=== PATIENT | female | born 1990 | race Two or more races ===

== ENCOUNTER 2019-01-29 20:10 | Emergency (ER) | payer MEDICAID ==
[~2019-01-29] VITALS: Ht 160 cm; Wt 53.1 kg
[2019-01-29 20:22] VITALS: BP 129/72
--- NOTE | 2019-01-29 20:22 | NUR ---
ED Nurse Note: Pt arrived ED from home, c/o headache and general body pain for 3 days. Pt is A/O X 4. VSS. waiting for orders.
--- NOTE | 2019-01-29 20:30 | NUR ---
ED Nurse Note: Pt was sent down for CT.
--- NOTE | 2019-01-29 20:45 | NUR ---
ED Nurse Note: Pt returned from CT.
--- NOTE | 2019-01-29 21:13 | NUR ---
ED Nurse Note: CBC sent.
--- NOTE | 2019-01-29 21:19 | Emergency Room Report ---
History of Present Illness General Chief Complaint: Headache Source: Patient (Chelo Beckman) Present Illness HPI 28 YO female presents to the emergency department complaining of 10 out of 10 severity acute onset headache since Saturday. Patient reports her pain is localized to the right side and is a constant sharp pressure pain she denies any relief after taking Motrin. Patient reports that she vomited one time due to the pain being so strong. Patient reports some nausea she also reports joint pains she denies fevers but reports chills. reports some neck pain but not stiffness. She denies abdominal pain or tenderness denies . pt's primary PA called prior to her arrival to review her recent labs which had minimally elevated ESR and increased TSH. He also is concerned about her 4lb unintentional weight loss over the last 2 weeks. She denies auditory or visual changes. (Chelo Beckman) Allergies: Coded Allergies: No Known Allergies (Unverified , 01/29/19) Patient History Past Medical History: see triage record Past Surgical History: none Pertinent Family History: none Last Menstrual Period: 01/22/19 Now: No Reviewed Nursing Documentation: PMH: Agreed; PSxH: Agreed (Chelo Beckman) Nursing Documentation-PMH Past Medical History: No Stated History (Chelo Beckman) Review of Systems All Other Systems: negative except mentioned in HPI (Chelo Beckman) Physical Exam Vital Signs Date Time Temp Pulse Resp B/P (MAP) Pulse Ox O2 Delivery O2 Flow Rate FiO2 01/29/19 20:14 98.4 97 18 129/72 (91) 98 Room Air Sp02 EP Interpretation: reviewed, normal General Appearance: alert, GCS 15, non-toxic, mild distress Head: normocephalic, atraumatic Eyes: bilateral eye normal inspection, bilateral eye PERRL ENT: hearing grossly normal, normal voice Neck: full range of motion, no meningismus, no bony tend, tender lateral - bilateral ST tenderness Respiratory: lungs clear, normal breath sounds, no respiratory distress, no accessory muscle use, no wheezing, speaking full sentences Cardiovascular #1: regular rate, rhythm Gastrointestinal: non tender, soft Genitourinary: no CVA tenderness Musculoskeletal: back normal, gait/station normal, normal range of motion, non- tender Neurologic: alert, oriented x3, responsive, motor strength/tone normal, sensory intact, normal gait, speech normal, other - no nystagmus. no nuchal rigidity, no facial droop or motor weakness, grossly normal Psychiatric: judgement/insight normal Skin: normal color, no rash, warm/dry, well hydrated (Chelo Beckman) Medical Decision Making PA Attestation Dr. Morin is my supervising Physician whom patient management has been discussed with. (Chelo Beckman) Diagnostic Impression: Primary Impression: Headache Qualified Codes: R51 - Headache ER Course 28 YO female presents to the emergency department complaining of 10 out of 10 severity acute onset headache since Saturday. Patient reports her pain is localized to the right side and is a constant sharp pressure pain she denies any relief after taking Motrin. Patient reports that she vomited one time due to the pain being so strong. Patient reports some nausea she also reports joint pains she denies fevers but reports chills. reports some neck pain but not stiffness. She denies abdominal pain or tenderness denies . pt's primary PA called prior to her arrival to review her recent labs which had minimally elevated ESR and increased TSH. He also is concerned about her 4lb unintentional weight loss over the last 2 weeks. She denies auditory or visual changes. Ddx considered but are not limited to migraine, SAH, Pseudomotor Cerebri,, Mass lesion, Cluster ACUNA, Tension ACUNA, Post lumbar puncture ACUNA. Vital signs: are WNL, pt. is afebrile H&PE are most consistent with ACUNA, no focal neurological deficits. possible viral syndrome --Recent labs reviewed: mildly elevated ESR @24, Mildly elevates TSH 4.11, Elevated microalbumin/urea ration of 360.5 ORDERS: - CBC: unremarkable -CMP: unremarkable -ESR: Elevated @ 48 UA: Most indicative of contamination: presence of equal amounts of bacteria and squamous cells, no elevation in inflammatory markers, nitrite negative. -Urine Hcg: Negative -CT HEAD NON CON: "Normal study, acute pathology" per official radiology report - Please see report for specific details. ED INTERVENTIONS: - Reglan PO -1 Liter NS BOLUS IV -Toradol IV 20mg -Benadryl 25mg IV -Tramadol PO -I do not identify an emergent condition at this time. With current presentation , pt. is stable for close outpatient follow up and conservative treatment. D/ w pt. to return promptly to ED with worsening or new symptoms.- Pt. verbalizes' understanding and agreement with proposed treatment plan.proposed treatment plan. DISCHARGE: At this time pt. is stable for d/c to home. Will provide printed patient care instructions, and any necessary prescriptions. Care plan and follow up instructions have been discussed with the patient prior to discharge. Labs Test 01/29/19 20:49 01/29/19 21:15 01/29/19 22:32 Urine Color Pale yellow Urine Appearance Clear Urine pH 5 (4.5-8.0) Urine Specific [place] 1.015 (1.005-1.035) Urine Protein 2+ (NEGATIVE) Urine Glucose (UA) Negative (NEGATIVE) Urine Ketones Negative (NEGATIVE) Urine Blood 2+ (NEGATIVE) Urine Nitrite Negative (NEGATIVE) Urine Bilirubin Negative (NEGATIVE) Urine Urobilinogen Normal MG/DL (0.0-1.0) Urine Leukocyte Esterase Negative (NEGATIVE) Urine RBC 2-4 /HPF (0 - 2) Urine WBC 0-2 /HPF (0 - 2) Urine Squamous Epithelial Cells Occasional /LPF Urine Bacteria Occasional /HPF (NONE) Urine HCG, Qualitative Negative (NEGATIVE) White Blood Count 10.1 K/UL (4.8-10.8) Red Blood Count 4.39 M/UL (4.20-5.40) Hemoglobin 13.4 G/DL (12.0-16.0) Hematocrit 37.5 % (37.0-47.0) Mean Corpuscular Volume 86 FL (80-99) Mean Corpuscular Hemoglobin 30.5 PG (27.0-31.0) Mean Corpuscular Hemoglobin Concent 35.6 G/DL (32.0-36.0) Red Cell Distribution Width 11.1 % (11.6-14.8) Platelet Count 308 K/UL (150-450) Mean Platelet Volume 6.0 FL (6.5-10.1) Neutrophils (%) (Auto) 62.5 % (45.0-75.0) Lymphocytes (%) (Auto) 24.8 % (20.0-45.0) Monocytes (%) (Auto) 9.2 % (1.0-10.0) Eosinophils (%) (Auto) 2.3 % (0.0-3.0) Basophils (%) (Auto) 1.2 % (0.0-2.0) Erythrocyte Sedimentation Rate 48 MM/HR (0-20) (Chelo Beckman) ER Course Please see above note. No thunderclap onset. No family history of aneurisms. Patient examined by me. No nuchal rigidity. Non-focal neurologic exam. WBC normal. ESR elevated. CT negative. Improved with treatment. Discussed outpatient observation with patient and mother. Consider return if not improving for possible MRI or LP. Discussed with referring MD. Patient stable for outpatient observation and treatment. (Duc Mroin MD) CT/MRI/US Diagnostic Results CT/MRI/US Diagnostic Results : Imaging Test Ordered: CT Head No contrast Impression " Normal study, acute pathology" per official radiology report- Please see report for specific details. (Chelo Beckman) Last Vital Signs Date Time Temp Pulse Resp B/P (MAP) Pulse Ox O2 Delivery O2 Flow Rate FiO2 01/29/19 20:22 98.4 86 18 129/72 98 Room Air Status: improved (Chelo Beckman) Last Vital Signs Date Time Temp Pulse Resp B/P (MAP) Pulse Ox O2 Delivery O2 Flow Rate FiO2 01/29/19 23:55 98.4 84 18 124/71 98 Room Air Status: improved (Duc Morin MD) Disposition: HOME, SELF-CARE Condition: Stable Scripts Tramadol Hcl* (ULTRAM*) 50 Mg Tablet 50 MG ORAL Q6H PRN for For Pain, #10 TAB 0 Refills Prov: Chelo Beckman 01/29/19 Patient Instructions: General Headache Without Cause Additional Instructions: Take medications as directed. Follow up with a Primary Care Provider in 3-5 days, even if your symptoms have resolved. --Please review list of primary care clinics, if you do not already have a primary care provider Return sooner to ED if new symptoms occur, or current symptoms become worse. - Please note that this Emergency Department Report was dictated using [employer] craftsman technology software, occasionally this can lead to erroneous entry secondary to interpretation by the dictation equipment. Chelo Beckman Jan 29, 2019 21:19 Duc Morin MD Jan 30, 2019 03:00
[2019-01-29 21:29] LABS: APPEARANCE,URINE CLEAR; BILIRUBIN, URINE NEGATIVE (NEGATIVE); COLOR,URINE PALE YELLOW; GLUCOSE, URINE (UA) NEGATIVE (NEGATIVE); KETONES,URINE NEGATIVE (NEGATIVE); LEUKOCYTE ESTERASE ,URINE NEGATIVE (NEGATIVE); NITRITE,URINE NEGATIVE (NEGATIVE); PH,URINE 5 (4.5-8.0); PROTEIN,URINE 2+ (NEGATIVE); UROBILINOGEN,URINE NORMAL MG/DL (0.0-1.0)
[2019-01-29 21:30] LABS: BASOPHILS % (AUTO) 1.2 % (0.0-2.0); EOSINOPHILS % (AUTO) 2.3 % (0.0-3.0); HEMATOCRIT 37.5 % (37.0-47.0); HEMOGLOBIN 13.4 G/DL (12.0-16.0); LYMPHOCYTES % (AUTO) 24.8 % (20.0-45.0); MEAN CORPUSCULAR VOLUME 86 FL (80-99); MONOCYTES % (AUTO) 9.2 % (1.0-10.0); NEUTROPHILS % (AUTO) 62.5 % (45.0-75.0); PLATELET COUNT 308 K/UL (150-450); RED BLOOD COUNT 4.39 M/UL (4.20-5.40); RED CELL DISTRIBUTION WIDTH 11.1 % (11.6-14.8); WHITE BLOOD COUNT 10.1 K/UL (4.8-10.8)
[2019-01-29] MEDS ORDERED: traMADol 50mg tab ORAL ONE ×2 (22:30→23:30)
[2019-01-29] MEDS ORDERED: DiphenhydrAMINE 50mg/ml Inj IVP ONE (22:30)
--- NOTE | 2019-01-29 22:35 | NUR ---
ED Nurse Note: Again Blood collected and snt to Lab.
--- NOTE | 2019-01-29 22:42 | NUR ---
ED Nurse Note: Toradol 20 mg /IV was unable to varified. Informed Dr. Morin and charge nurse Lissy, and called Vivi briones.
[2019-01-29 22:51] LABS: INR 0.9 (0.9-1.1)
[2019-01-29 22:52] LABS: ANION GAP 9 mmol/L (5-15); BLOOD UREA NITROGEN 11 mg/dL (7-18); CALCIUM 9.4 MG/DL (8.5-10.1); CARBON DIOXIDE 26 MMOL/L (21-32); CHLORIDE 105 MMOL/L (98-107); CREATININE 0.6 MG/DL (0.55-1.30); POTASSIUM 3.9 MMOL/L (3.5-5.1); SODIUM 140 MMOL/L (136-145)
[2019-01-29 22:56] LABS: ALANINE AMINOTRANSFERASE 28 U/L (12-78); ALBUMIN 4.2 G/DL (3.4-5.0); ALBUMIN/GLOBULIN RATIO 1.2 (1.0-2.7); ALKALINE PHOSPHATASE 69 U/L (46-116); ASPARTATE AMINO TRANSFERASE 21 U/L (15-37); BILIRUBIN,TOTAL 0.3 MG/DL (0.2-1.0)
[2019-01-29] MEDS ORDERED: Ketorolac 30mg Inj IV ONE (23:00)
[2019-01-29] MEDS ORDERED: TRAMADOL HCL50 MG ORAL (23:30)
[2019-01-29 23:55] VITALS: BP 124/71
--- NOTE | 2019-01-29 23:55 | NUR ---
ER DISCHARGE NOTE: Patient is cleared to be discharged per Dr. Morin. Pt is aox4 on room air with stable vital signs. Pt was given dc and prescription instructions and was able to verbalize understanding. Pt's IV and ID band removed. Pt is able to ambulate with steady gait and took all belongings.
--- NOTE | 2019-01-30 08:40 | Diagnostic Imaging Report ---
Indications: Headache Technique: Spiral acquisitions obtained through the brain. Angled axial and coronal 5 x 5 mm slices were reconstructed. Total dose length product 1270.52 mGycm. CTDI vol(s) 70.38 mGy. Dose reduction achieved using automated exposure control Comparison: None. Findings: No acute intracranial hemorrhage nor edema. No mass effect nor midline shift. Normal rangel-white differentiation. Normal-sized ventricles and extra axial CSF spaces. The mastoids are clear. The calvarium is intact. Visualized orbits and sinuses are unremarkable. Impression: Negative This agrees with the preliminary interpretation provided overnight by [facility]eradiology service. The CT scanner at [facility] is accredited by the [employer] and the scans are performed using protocols designed to limit radiation exposure to as low as reasonably achievable to attain images of sufficient resolution adequate for diagnostic evaluation.
== END 2019-01-29 23:55 | disposition home or self-care (01) ==
LOC: EMR 20:52
DX: R51 Headache (principal)
CPT/HCPCS: 36415; 70450; 80053; 81003; 81025; 84439; 84443; 84481; 85025; 85610; 85651; 85730; 96361; 96374; 96375; 99284; J1200; J1885